=== PATIENT | female | born 1950 | race Caucasian/White ===

== ENCOUNTER 2018-07-12 10:04 | Emergency (ER) | payer OTHER ==
[2018-07-12 10:44] VITALS: TEMP 98.4; BMI 20.3
--- NOTE | 2018-07-12 10:54 | PDOC ---
History of Present Illness - General Chief Complaint: Injury Stated Complaint: LEFY HAND PAIN Time Seen by Provider: 07/12/18 10:12 - History of Present Illness Initial Comments: 07/12/18 10:56 68 F with h/o epilepsy, recurrent falls, presenting from ID with fall. Per ID staff, pt was attempting to transfer from her chair on her own without assistance. She subsequently fell onto her rear. Denies headstrike/LOC. Denies feeling dizzy or lightheaded prior to falling. Pt states she felt fine after the fall, but this morning while eating breakfast, she realized her L hand was swollen and painful. Pt denies any new pain anywhere else, though she notes that she has had R shoulder pain since her last fall a few weeks ago. Pt denies SAENZ/N/V. Denies CP/SOB. Denies hip or pelvis pain. Denies leg pain. Past History - Past Medical History Allergies/Adverse Reactions: Allergies Allergy/AdvReac Type Severity Reaction Status Date / Time Penicillins Allergy Verified 07/12/18 10:21 Home Medications: Ambulatory Orders Acetaminophen 650 mg PO BID 04/11/18 Ammonium Lactate Cream [Lac-Hydrin 12% *Cream*] 1 applic TP DAILY 04/11/18 Ascorbic Acid [Vitamin C] 500 mg PO DAILY 04/11/18 Aspirin [Ecotrin] 81 mg PO DAILY 04/11/18 Atorvastatin Ca [Lipitor] 40 mg PO HS 04/11/18 Cholecalciferol (Vitamin D3) [Vitamin D3] 200 unit PO DAILY 04/11/18 Divalproex Sodium [Depakote] 500 mg PO DAILY 04/11/18 Ferrous Sulfate 325 mg PO DAILY 04/11/18 Lamotrigine 100 mg PO DAILY 04/11/18 Levetiracetam [Keppra] 1,000 mg PO BID 04/11/18 Nicotine [Nicotine Patch 14mg/24 hr] 1 each TD DAILY 04/11/18 Venlafaxine HCl [Effexor -] 75 mg PO DAILY 04/11/18 Zonisamide [Zonegran] 200 mg PO BID 04/11/18 COPD: No Hypercholesterolemia: Yes Psychiatric Problems: Yes Seizures: Yes - Suicide/Smoking/Psychosocial Hx Smoking History: Never smoked Number of Cigarettes Smoked Daily: 10 Hx Alcohol Use: No Drug/Substance Use Hx: No Review of Systems - Review of Systems Comments:: 07/12/18 10:52 "GENERAL/CONSTITUTIONAL: No fever or chills. No weakness. HEAD, EYES, EARS, NOSE AND THROAT: No change in vision. No ear pain or discharge. No sore throat. CARDIOVASCULAR: No chest pain, no shortness of breath, no loss of consciousness RESPIRATORY: No cough, wheezing, or hemoptysis. GASTROINTESTINAL: No nausea, vomiting, diarrhea or constipation. GENITOURINARY: No dysuria, frequency, or change in urination. MUSCULOSKELETAL: + L hand pain. No neck or back pain. SKIN: No rash NEUROLOGIC: No vertigo, no change in strength/sensation. ENDOCRINE: No increased thirst. No abnormal weight change. HEMATOLOGIC/LYMPHATIC: No anemia, easy bleeding, or history of blood clots. ALLERGIC/IMMUNOLOGIC: No hives or skin allergy. *Physical Exam - Vital Signs Last Vital Signs Temp Pulse Resp BP Pulse Ox 98.4 F 80 18 150/100 100 07/12/18 10:33 07/12/18 10:33 07/12/18 10:33 07/12/18 10:33 07/12/18 10:33 - Physical Exam Comments: 07/12/18 10:50 GENERAL: Awake, alert, and fully oriented, in no acute distress. HEAD: No signs of trauma EYES: PERRLA, EOMI, sclera anicteric, conjunctiva clear ENT: Auricles normal inspection, hearing grossly normal, nares patent, oropharynx clear without exudates. Moist mucosa NECK: Nontender, no stepoffs, Normal ROM, supple, no lymphadenopathy, JVD, or masses LUNGS: Breath sounds equal, clear to auscultation bilaterally. No wheezes, and no crackles HEART: Regular rate and rhythm, normal S1 and S2, no murmurs, rubs or gallops ABDOMEN: Soft, nontender, normoactive bowel sounds. No guarding, no rebound. No masses EXTREMITIES: + ecchymosis and edema to L 4th and 5th digits with TTP, no obvious deformity NEUROLOGICAL: Cranial nerves II through XII intact. 5/5 strength and sensation in all extremities, Normal speech, normal gait, normal cerebellar function SKIN: Warm, Dry, normal turgor, no rashes or lesions noted. Procedures - Splinting Splint Location: Left: Hand Pre-Proc Neuro Vasc Exam: normal Hand-Made Type: orthoglass Splint Type: Yes: Ulnar Post-Proc Neuro Vasc Exam: normal Rick Bandage: yes Complications: No ED Treatment Course - RADIOLOGY Radiology Studies Ordered: Category Date Time Status HEAD CT WITHOUT CONTRAST [CT] Stat CT Scan 07/12/18 10:29 Ordered CHEST PA & LAT [RAD] Stat Radiology 07/12/18 10:30 Ordered HAND- LEFT [RAD] Stat Radiology 07/12/18 10:29 Ordered PELVIS [RAD] Stat Radiology 07/12/18 10:30 Ordered Medical Decision Making - Medical Decision Making 07/12/18 10:48 68 F with mechanical fall at ID. Now with L hand pain. - CT head - XR L hand, pelvis, chest 07/12/18 14:12 CT negative XR pending 07/12/18 14:30 XR shows L 5th proximal phalanx fx Spoke with Dr. Pandey, who recommends ulnar gutter. 07/12/18 15:08 Pt placed in splint. Pt is well appearing, with normal vitals. Clinically stable for DC at this time. I discussed the physical exam findings, ancillary test results and final diagnoses with the patient. I answered all of the patient's questions. The patient was satisfied with the care received and felt comfortable with the discharge plan and treatment plan. The patient agrees to follow up with the primary care physician within 24-72 hours. *DC/Admit/Observation/Transfer Diagnosis at time of Disposition: Finger fracture, left - Discharge Dispostion Disposition: HOME - Referrals Referrals: Misty Machado MD [Primary Care Provider] - Jay Kim MD [Staff Physician] - - Patient Instructions Printed Discharge Instructions: DI for Finger Fracture Additional Instructions: You have a finger fracture. Keep your hand in the splint at all times. Call the number to make an appointment with our orthopedic surgeon within 1 week. If you experience worsening pain, swelling, or any other concerning symptoms, return to the ER immediately. - Post Discharge Activity - Attestations Physician Attestion: 07/12/18 15:08 I, Dr. Manolo Meng MD, attest that this document has been prepared under my direction and personally reviewed by me in its entirety. I further attest, that it accurately reflects all work, treatment, procedures and medical decision -making performed by me.
[2018-07-12 16:14] VITALS: BP 157/67; PULSE 87
== END 2018-07-12 18:27 | disposition home or self-care (01) ==
LOC: JER 10:04
PROC: 2W3KX1Z Immobilization of Left Finger using Splint (ICD-10-PCS; principal; 2018-07-12)
DX: S62.647A Nondisplaced fracture of proximal phalanx of left little finger, initial encounter for closed fracture (principal); W07.XXXA Fall from chair, initial encounter; Y93.89 Activity, other specified; Y92.099 Unspecified place in other non-institutional residence as the place of occurrence of the external cause
CPT/HCPCS: 29130; 70450-TC; 71046-TC-FY; 72170-TC-FY; 73130-TC-LR-FY; 99281-25

== ENCOUNTER 2019-04-18 10:35 | Emergency (ER) | payer OTHER ==
--- NOTE | 2019-04-18 10:45 | PDOC ---
History of Present Illness - General Stated Complaint: Injury Time Seen by Provider: 04/18/19 10:44 - History of Present Illness Initial Comments: 04/18/19 10:44 Ms. Zee is a 69 yo female w/ pmh of epilepsy and recurrent falls who presents for evaluation of fall last night. Patient reports she was in her wheelchair when she slipped out and hit the front of her head. Currently complaining of headache and neck pain however denies other symptoms at this time and is at baseline per aid who is with her. Patient does not take blood thinners. Was able to make her way over to call button and ring for assistance when this occurred. The patient denies chest pain, shortness of breath, headache and dizziness. Denies fever, chills, nausea, vomit, diarrhea and constipation. Denies dysuria, frequency, urgency and hematuria. Past History - Past Medical History Allergies/Adverse Reactions: Allergies Allergy/AdvReac Type Severity Reaction Status Date / Time Penicillins Allergy Verified 04/18/19 10:59 Home Medications: Ambulatory Orders Acetaminophen 650 mg PO BID 04/11/18 Ascorbic Acid [Vitamin C] 500 mg PO DAILY 04/11/18 Aspirin [Ecotrin] 81 mg PO DAILY 04/11/18 Atorvastatin Ca [Lipitor] 40 mg PO HS 04/11/18 Cholecalciferol (Vitamin D3) [Vitamin D3] 400 unit PO DAILY 04/11/18 Ferrous Sulfate 325 mg PO DAILY 04/11/18 Lamotrigine 300 mg PO DAILY 04/11/18 Levetiracetam [Keppra] 1,500 mg PO BID 04/11/18 Venlafaxine HCl [Effexor -] 75 mg PO DAILY 04/11/18 Zonisamide [Zonegran] 200 mg PO BID 04/11/18 Amlodipine Besylate [Norvasc -] 5 mg PO DAILY 04/18/19 Gabapentin 800 mg PO TID 04/18/19 Lamotrigine 400 mg PO HS 04/18/19 Metoprolol Tartrate 25 mg PO BID 04/18/19 Mirtazapine 7.5 mg PO HS 04/18/19 COPD: No Hypercholesterolemia: Yes Psychiatric Problems: Yes Seizures: Yes - Suicide/Smoking/Psychosocial Hx Smoking History: Never smoked Number of Cigarettes Smoked Daily: 10 Hx Alcohol Use: No Drug/Substance Use Hx: No Review of Systems - Review of Systems Comments:: 04/18/19 10:44 GENERAL/CONSTITUTIONAL: No fever or chills. No weakness. HEAD, EYES, EARS, NOSE AND THROAT: No change in vision. No ear pain or discharge. No sore throat. CARDIOVASCULAR: No chest pain or shortness of breath RESPIRATORY: No cough, wheezing, or hemoptysis. GASTROINTESTINAL: No nausea, vomiting, diarrhea or constipation. GENITOURINARY: No dysuria, frequency, or change in urination. MUSCULOSKELETAL: No joint or muscle swelling or pain. No neck or back pain. SKIN: No rash NEUROLOGIC: +Headache only. No vertigo, loss of consciousness, or change in strength/sensation. ENDOCRINE: No increased thirst. No abnormal weight change HEMATOLOGIC/LYMPHATIC: No anemia, easy bleeding, or history of blood clots. ALLERGIC/IMMUNOLOGIC: No hives or skin allergy. *Physical Exam - Physical Exam Comments: 04/18/19 10:44 GENERAL: Awake, alert, and fully oriented, in no acute distress HEAD: +Hematoma noted to forehead in the midline c/w history. EYES: PERRLA, EOMI, sclera anicteric, conjunctiva clear ENT: Auricles normal inspection, hearing grossly normal, nares patent, oropharynx clear without exudates. Moist mucosa NECK: Normal ROM, supple, no lymphadenopathy, JVD, or masses LUNGS: No distress, speaks full sentences, clear to auscultation bilaterally HEART: Regular rate and rhythm, normal S1 and S2, no murmurs, rubs or gallops, peripheral pulses normal and equal bilaterally. ABDOMEN: Soft, nontender, normoactive bowel sounds. No guarding, no rebound. No masses EXTREMITIES: Normal inspection, Normal range of motion, no edema. No clubbing or cyanosis. NEUROLOGICAL: Cranial nerves II through XII grossly intact. Normal speech, no focal sensorimotor deficits SKIN: Warm, Dry, normal turgor, no rashes or lesions noted. Medical Decision Making - Medical Decision Making 04/18/19 11:01 Ms. Zee is a 69 yo female w/ pmh as described who presents for evaluation of mechanical fall. Patient given tylenol for pain control and will be evaluated for acute process w/ Head/C-spine CT. 04/18/19 12:31 CT's negative for acute process. No concern for other injury at this time. Discharging to home for further outpatient management as needed. *DC/Admit/Observation/Transfer Diagnosis at time of Disposition: Fall Qualifiers: Encounter type: initial encounter Qualified Code(s): W19.XXXA - Unspecified fall, initial encounter - Referrals Referrals: Trisha Ryan MD [Primary Care Provider] - - Patient Instructions Printed Discharge Instructions: How to Prevent Falls Additional Instructions: You were evaluated today in the ER for your fall. We performed Head and C-spine CTs which were both negative and we believe you are safe for discharge at this time. Please follow-up with primary care provider later this week for further evaluation. You may take over the counter tylenol per package instructions for pain relief as needed. Return to ER if any change in mentation, fever, chills, excessive sleepiness, or other concerning symptoms. - Post Discharge Activity
[2019-04-18] MEDS ORDERED: ACETAMINOPHEN 500 MG TABLET (FP) PO ONE (10:56)
[2019-04-18 10:59] VITALS: BP 120/65; PULSE 54; TEMP 97.8; BMI 21.4
[2019-04-18] MEDS ORDERED: ACETAMINOPHEN 325 MG TABLET (FP) ONE (11:03)
--- NOTE | 2019-04-18 11:48 | PDOC ---
Documentation entered by Marisol Berrios SCRIBE, acting as scribe for Manolo Meng MD. Manolo Meng MD: This documentation has been prepared by the Agustina pimentel Sammi, SCRIBE, under my direction and personally reviewed by me in its entirety. I confirm that the documentation accurately reflects all work, treatment, procedures, and medical decision making performed by me. Attending Attestation - Resident Resident Name: NelsonyossiMateus - ED Attending Attestation I have performed the following: I have examined & evaluated the patient, The case was reviewed & discussed with the resident, I agree w/resident's findings & plan, Exceptions are as noted - HPI HPI: 04/18/19 10:57 The patient is an 87 year old female, with a significant PMH of epilepsy, recurrent falls, who presents to the emergency department for evaluation s/p fall out of wheelchair last night around 12am. Pt does not recall exactly why she fell but states that she was conscious the entire time. The patient states she was able to get herself to the bathroom to ring her call button and was assisted up by staff of [facility]. She reports head trauma with associated mild headache. Denies CP/SOB/palpitations prior to fall. Denies lightheadedness/ dizziness. Allergies: Penicillin PCP: [facility] - Physicial Exam PE: 04/18/19 11:49 "GENERAL: Awake, alert, and fully oriented, in no acute distress. HEAD: + forehead hematoma, no lacs EYES: PERRLA, EOMI, sclera anicteric, conjunctiva clear ENT: Auricles normal inspection, hearing grossly normal, nares patent, oropharynx clear without exudates. Moist mucosa NECK: Nontender, no stepoffs, Normal ROM, supple, no lymphadenopathy, JVD, or masses LUNGS: Breath sounds equal, clear to auscultation bilaterally. No wheezes, and no crackles HEART: Regular rate and rhythm, normal S1 and S2, no murmurs, rubs or gallops ABDOMEN: Soft, nontender, normoactive bowel sounds. No guarding, no rebound. No masses EXTREMITIES: Normal range of motion, no edema. No clubbing or cyanosis. No cords, erythema, or tenderness NEUROLOGICAL: Cranial nerves II through XII intact. 5/5 strength and sensation in all extremities, Normal speech SKIN: Warm, Dry, normal turgor, no rashes or lesions noted. - Medical Decision Making 04/18/19 11:49 69 F with likely mechanical fall. No s/s syncope. - CT head/c-spine 04/18/19 12:31 CTs negative Pt ambulatory in ED with assistance (uses walker at baseline) Pt is well appearing, with normal vitals. Clinically stable for DC at this time. I discussed the physical exam findings, ancillary test results and final diagnoses with the patient. I answered all of the patient's questions. The patient was satisfied with the care received and felt comfortable with the discharge plan and treatment plan. The patient agrees to follow up with the primary care physician within 24-72 hours.
--- NOTE | 2019-04-18 12:21 | EKG ---
Test Reason : Blood Pressure : / mmHG Vent. Rate : 050 BPM Atrial Rate : 050 BPM P-R Int : 202 ms QRS Dur : 094 ms QT Int : 464 ms P-R-T Axes : 030 -34 050 degrees QTc Int : 423 ms SINUS BRADYCARDIA LEFT AXIS DEVIATION ABNORMAL ECG WHEN COMPARED WITH ECG OF 12-JUL-2018 10:21, NONSPECIFIC T WAVE ABNORMALITY NOW EVIDENT IN ANTERIOR LEADS Confirmed by TERRY KENNEDY, SAYDA ([id number]) on 04/18/2019 12:21:02 PM Referred By: Confirmed By:SAYDA STEWART MD
== END 2019-04-18 14:04 ==
LOC: JER 10:35
DX: Z04.3 Encounter for examination and observation following other accident (principal); G40.909 Epilepsy, unspecified, not intractable, without status epilepticus; R29.6 Repeated falls; Z88.0 Allergy status to penicillin; Z79.84 Long term (current) use of oral hypoglycemic drugs; E78.00 Pure hypercholesterolemia, unspecified; R51 Headache; M54.2 Cervicalgia; W05.0XXA Fall from non-moving wheelchair, initial encounter; Z91.81 History of falling; Y93.89 Activity, other specified; Y92.128 Other place in nursing home as the place of occurrence of the external cause
CPT/HCPCS: 70450-TC; 72125-TC; 93005; 93010; 99281-25

== ENCOUNTER 2022-01-09 04:07 | Emergency (ER) | payer OTHER ==
[2022-01-09 04:28] VITALS: BP 122/66; PULSE 52; TEMP 97.4; BMI 20.5
== END 2022-01-09 09:10 ==
LOC: JER 04:07
DX: S59.902A Unspecified injury of left elbow, initial encounter (principal); W06.XXXA Fall from bed, initial encounter
CPT/HCPCS: 70450-TC; 72125-TC; 73070-TC-LT-FY; 99285-25